=== PATIENT | female | born 1995 | race Two or more races ===

== ENCOUNTER 2023-02-26 12:59 | Inpatient (IN) | payer BC, OTHER ==
[~2023-02-26] VITALS: Ht 157.5 cm; Wt 58.8 kg
[2023-02-26] MEDS ORDERED: PIPERACILLIN-TAZOB 3.375GM 100 ML IV ONE (13:30)
[2023-02-26] MEDS ORDERED: SODIUM CHLORIDE 0.9% 1,000 ML IV ONE ×2 (13:30)
[2023-02-26 14:00] LABS: Basophils # (auto) 0 10 ^3/uL (0-0.2); Basophils % (auto) 0.3 % (0.0-2.0); Eosinophils # (auto) 0 10 ^3/uL (0-0.8); Eosinophils % (auto) 0.1 % (0.0-7.0); Hematocrit 36.1 % (36.0-46.0); Hemoglobin 12.4 g/dL (12.2-16.2); Lymphocytes % (auto) 10.7 % (10.0-50.0); Mean Corpuscular Hemoglobin 29.4 pg (28.0-32.0); Mean Corpuscular Hgb Conc. 34.3 g/dL (32.0-36.0); Mean Corpuscular Volume 85.7 fL (80.0-100.0); Monocytes # (auto) 1.7 10 ^3/uL (0-1.3); Monocytes % (auto) 8.7 % (0.0-12.0); Neutrophils # (auto) 15.3 10 ^3/uL (1.6-8.6); Neutrophils % (auto) 80.2 % (37.0-80.0); Red Blood Cells 4.21 10^6/uL (4.0-5.20); Red Cell Distribution Width 13.2 % (11.8-14.3); White Blood Cell 19.1 10^3/uL (4.4-10.8)
[2023-02-26] MEDS ORDERED: LORazepam 2MG/ML-1ML VIAL IV ONE (14:00)
[2023-02-26 14:15] LABS: Albumin 3.2 g/dL (3.4-5.0); Calcium 7.6 mg/dL (8.5-10.1); Potassium 3.4 mmol/L (3.5-5.1)
[2023-02-26 14:18] LABS: Blood Alcohol < 3.0 mg/dL (0-5); Magnesium 2.6 mg/dL (1.6-2.6)
[2023-02-26 14:20] LABS: BUN/Creatinine Ratio 20.7 (10.0-20.0); Bilirubin, Total 1.2 mg/dL (0.2-1.0); Total Protein 6.7 g/dL (6.4-8.2)
[2023-02-26 14:32] LABS: Creatine Kinase IFCC 2212 U/L (26-192)
[2023-02-26] MEDS ORDERED: ACETAMINOPHEN 650 MG RECT SUPP PR ONE (17:30)
[2023-02-26] MEDS ORDERED: ACETAMINOPHEN 650 MG RECT SUPP PR PRN (17:30)
[2023-02-26] MEDS ORDERED: NITROGLYCERIN 0.4 MG SL TAB SL PRN (17:30)
[2023-02-26] MEDS: SODIUM CHLORIDE 0.9% 1,000 ML IV SCH (20:16)
[2023-02-26 20:20] LABS: Urine Bacteria FEW /hpf (None Seen); Urine Blood 2+ /uL (Negative); Urine Mucus FEW (None Seen); Urine Specific Gravity 1.026 (1.001-1.035); Urine WBC 3 /hpf (0 - 5)
[2023-02-26 20:36] LABS: Amphetamine Screen, Urine POSITIVE (NEGATIVE); Barbiturate Scree,Urine POSITIVE (NEGATIVE); Benzodiazephine Screen, Urine POSITIVE (NEGATIVE); Cocaine Screen, Urine POSITIVE (NEGATIVE); Opiate Scree,Urine NEGATIVE (NEGATIVE)
[2023-02-26 20:44] LABS: Cannabinoid Screen, Urine POSITIVE (NEGATIVE); Phencyclidine Screen, Urine NEGATIVE (NEGATIVE)
[2023-02-27] MEDS ORDERED: SODIUM CHLORIDE 0.9% 1,000 ML IV ONE (00:30)
[2023-02-27] MEDS: SODIUM CHLORIDE 0.9% 1,000 ML IV SCH ×3 (02:31→22:08)
[2023-02-27] MEDS: MORPHINE SULFATE INJ 2 MG/ml SYRG IV PRN (02:57)
[2023-02-27] MEDS: LORazepam 2MG/ML-1ML VIAL IV PRN ×4 (04:18→23:36)
[2023-02-27] MEDS ORDERED: IOHEXOL 350 MG/ML 100ML IJ ONE (04:46)
[2023-02-27] MEDS: GABAPENTIN 300 MG CAP PO SCH ×3 (05:08→21:56)
[2023-02-27 06:42] LABS: Albumin 2.2 g/dL (3.4-5.0); Calcium 6.7 mg/dL (8.5-10.1); Potassium 3.2 mmol/L (3.5-5.1)
[2023-02-27 07:01] LABS: BUN/Creatinine Ratio 19.1 (10.0-20.0); Bilirubin, Total 0.6 mg/dL (0.2-1.0); Total Protein 5.2 g/dL (6.4-8.2)
[2023-02-27 07:16] LABS: Basophils # (auto) 0 10 ^3/uL (0-0.2); Basophils % (auto) 0.1 % (0.0-2.0); Eosinophils # (auto) 0 10 ^3/uL (0-0.8); Eosinophils % (auto) 0.1 % (0.0-7.0); Hematocrit 24.3 % (36.0-46.0); Hemoglobin 8.7 g/dL (12.2-16.2); Lymphocytes # (auto) 1.8 10 ^3/uL (0.4-5.4); Lymphocytes % (auto) 18.9 % (10.0-50.0); Mean Corpuscular Hemoglobin 30.2 pg (28.0-32.0); Mean Corpuscular Hgb Conc. 35.6 g/dL (32.0-36.0); Mean Corpuscular Volume 84.7 fL (80.0-100.0); Monocytes # (auto) 0.7 10 ^3/uL (0-1.3); Monocytes % (auto) 7.8 % (0.0-12.0); Neutrophils # (auto) 6.9 10 ^3/uL (1.6-8.6); Neutrophils % (auto) 73.1 % (37.0-80.0); Red Blood Cells 2.87 10^6/uL (4.0-5.20); Red Cell Distribution Width 13.7 % (11.8-14.3); White Blood Cell 9.5 10^3/uL (4.4-10.8)
[2023-02-27] MEDS: cefTRIAXone 1GM/50ML D5W 50 ML IV SCH (09:19)
[2023-02-27] MEDS ORDERED: LORazepam 2MG/ML-1ML VIAL IV PRN (10:15)
[2023-02-27] MEDS: PANTOPRAZOLE 40 MG/10 ML VIAL INJ IV SCH (10:33)
[2023-02-27] MEDS: AZITHROMYCIN 500MG/ 250ML 250 ML IV SCH (11:08)
[2023-02-27] MEDS ORDERED: POTASSIUM EFFERVESENT TAB 25 MEQ PO ONE (12:00)
[2023-02-27] MEDS: metroNIDAZOLE 500MG/100ML 100 ML IV SCH ×2 (17:32→21:56)
[2023-02-27] MEDS: FOLIC ACID 1 MG, MULTIPLE VITAMIN 10 ML, MAGNESIUM SULF SDV 50% 8 MEQ, THIAMINE INJ 100... INJ SCH ×5 (19:31)
[2023-02-27] MEDS: QUEtiapine FUMARATE 100 MG TAB PO SCH (21:55)
[2023-02-27 22:00] VITALS: BP 95/58
[2023-02-27] MEDS: ONDANSETRON HCL 4 MG/2 ML VIAL IV PRN (23:36)
[2023-02-28] MEDS: SODIUM CHLORIDE 0.9% 1,000 ML IV SCH (02:50)
[2023-02-28] MEDS: metroNIDAZOLE 500MG/100ML 100 ML IV SCH ×3 (05:44→22:12)
[2023-02-28] MEDS: GABAPENTIN 300 MG CAP PO SCH ×3 (05:44→22:13)
[2023-02-28] MEDS: LORazepam 2MG/ML-1ML VIAL IV PRN ×2 (05:54→22:14)
[2023-02-28 06:32] LABS: Basophils # (auto) 0 10 ^3/uL (0-0.2); Basophils % (auto) 0.2 % (0.0-2.0); Eosinophils # (auto) 0 10 ^3/uL (0-0.8); Eosinophils % (auto) 0.4 % (0.0-7.0); Hematocrit 28.6 % (36.0-46.0); Hemoglobin 10.3 g/dL (12.2-16.2); Lymphocytes # (auto) 2.3 10 ^3/uL (0.4-5.4); Lymphocytes % (auto) 26.9 % (10.0-50.0); Mean Corpuscular Hemoglobin 32.2 pg (28.0-32.0); Mean Corpuscular Hgb Conc. 35.9 g/dL (32.0-36.0); Mean Corpuscular Volume 89.8 fL (80.0-100.0); Monocytes # (auto) 0.6 10 ^3/uL (0-1.3); Monocytes % (auto) 6.8 % (0.0-12.0); Neutrophils # (auto) 5.6 10 ^3/uL (1.6-8.6); Neutrophils % (auto) 65.7 % (37.0-80.0); Red Blood Cells 3.19 10^6/uL (4.0-5.20); Red Cell Distribution Width 13.7 % (11.8-14.3); White Blood Cell 8.6 10^3/uL (4.4-10.8)
[2023-02-28 06:46] LABS: BUN/Creatinine Ratio 3.3 (10.0-20.0); Calcium 7.8 mg/dL (8.5-10.1); Potassium 3.2 mmol/L (3.5-5.1)
[2023-02-28 08:00] VITALS: BP 97/65
[2023-02-28 09:02] VITALS: BP 97/65
[2023-02-28] MEDS: cefTRIAXone 1GM/50ML D5W 50 ML IV SCH (09:48)
[2023-02-28] MEDS: PANTOPRAZOLE 40 MG/10 ML VIAL INJ IV SCH (09:52)
[2023-02-28] MEDS: AZITHROMYCIN 500MG/ 250ML 250 ML IV SCH (10:37)
[2023-02-28] MEDS ORDERED: MORPHINE SULFATE INJ 2 MG/ml SYRG IV PRN (10:45)
[2023-02-28] MEDS ORDERED: LORazepam 2MG/ML-1ML VIAL IV PRN (11:00)
[2023-02-28] MEDS: D5W/SOD CHL 0.45%/KCL 40MEQ 1,000 ML IV SCH ×2 (11:59→22:32)
[2023-02-28] MEDS: chlordiazePOXIDE HCL 25 MG CAP PO SCH ×3 (12:11→23:32)
[2023-02-28 13:00] VITALS: BP 96/68
[2023-02-28] MEDS: FOLIC ACID 1 MG, MULTIPLE VITAMIN 10 ML, MAGNESIUM SULF SDV 50% 8 MEQ, THIAMINE INJ 100... INJ SCH ×5 (13:47)
[2023-02-28] MEDS: ONDANSETRON HCL 4 MG/2 ML VIAL IV PRN (17:02)
[2023-02-28 22:00] VITALS: BP 104/60
[2023-02-28] MEDS: QUEtiapine FUMARATE 100 MG TAB PO SCH (22:12)
[2023-02-28] MEDS: MORPHINE SULFATE INJ 2 MG/ml SYRG IV PRN (22:28)
[2023-03-01 05:00] VITALS: BP 110/70
[2023-03-01 05:44] LABS: Calcium 8.1 mg/dL (8.5-10.1); Potassium 4.3 mmol/L (3.5-5.1)
[2023-03-01 05:48] LABS: Albumin 2.5 g/dL (3.4-5.0); BUN/Creatinine Ratio 8.7 (10.0-20.0)
[2023-03-01 05:51] LABS: Bilirubin, Total 0.4 mg/dL (0.2-1.0); Total Protein 6.5 g/dL (6.4-8.2)
[2023-03-01] MEDS: GABAPENTIN 300 MG CAP PO SCH ×3 (06:16→21:14)
[2023-03-01] MEDS: chlordiazePOXIDE HCL 25 MG CAP PO SCH (06:16)
[2023-03-01] MEDS: metroNIDAZOLE 500MG/100ML 100 ML IV SCH ×3 (06:16→21:15)
[2023-03-01 06:24] LABS: Basophils # (auto) 0 10 ^3/uL (0-0.2); Basophils % (auto) 0.2 % (0.0-2.0); Eosinophils # (auto) 0.1 10 ^3/uL (0-0.8); Hematocrit 28.3 % (36.0-46.0); Lymphocytes % (auto) 33.2 % (10.0-50.0); Mean Corpuscular Hemoglobin 32.3 pg (28.0-32.0); Mean Corpuscular Hgb Conc. 35.3 g/dL (32.0-36.0); Mean Corpuscular Volume 91.6 fL (80.0-100.0); Monocytes # (auto) 0.5 10 ^3/uL (0-1.3); Monocytes % (auto) 7.8 % (0.0-12.0); Neutrophils # (auto) 3.3 10 ^3/uL (1.6-8.6); Neutrophils % (auto) 56.8 % (37.0-80.0); Nucleated Red Blood Cells % 0.1 %; Red Blood Cells 3.08 10^6/uL (4.0-5.20); Red Cell Distribution Width 13.8 % (11.8-14.3); White Blood Cell 5.9 10^3/uL (4.4-10.8)
[2023-03-01] MEDS: D5W/SOD CHL 0.45%/KCL 40MEQ 1,000 ML IV SCH (06:29)
[2023-03-01 08:00] VITALS: BP 94/63
[2023-03-01 08:50] VITALS: BP 94/63
[2023-03-01] MEDS: cefTRIAXone 1GM/50ML D5W 50 ML IV SCH (09:13)
[2023-03-01] MEDS: PANTOPRAZOLE 40 MG/10 ML VIAL INJ IV SCH (09:14)
[2023-03-01] MEDS: AZITHROMYCIN 500MG/ 250ML 250 ML IV SCH (11:03)
[2023-03-01 12:00] VITALS: BP 103/57
[2023-03-01] MEDS: HYDROcodone-ACET 5/325MG TAB PO PRN ×2 (12:32→21:15)
[2023-03-01] MEDS: ACETAMINOPHEN 500 MG TAB PO PRN (13:59)
[2023-03-01 17:00] VITALS: BP_SYST 107; BP_SYST 85; BP_DIAS 56; BP_DIAS 71
[2023-03-01] MEDS: chlordiazePOXIDE HCL 5 MG CAP PO SCH (17:12)
[2023-03-01] MEDS: QUEtiapine FUMARATE 100 MG TAB PO SCH (21:14)
[2023-03-01] MEDS: ONDANSETRON HCL 4 MG/2 ML VIAL IV PRN (21:23)
[2023-03-01 22:00] VITALS: BP 108/61
[2023-03-02] VITALS (7 sets, daily range): BP systolic 85–122; BP diastolic 50–72
[2023-03-02] MEDS: chlordiazePOXIDE HCL 5 MG CAP PO SCH ×2 (00:38→05:55)
[2023-03-02] MEDS: GABAPENTIN 300 MG CAP PO SCH ×3 (05:55→20:58)
[2023-03-02] MEDS: metroNIDAZOLE 500MG/100ML 100 ML IV SCH ×3 (05:56→20:58)
[2023-03-02] MEDS: cefTRIAXone 1GM/50ML D5W 50 ML IV SCH (09:15)
[2023-03-02] MEDS: PANTOPRAZOLE 40 MG/10 ML VIAL INJ IV SCH (09:17)
[2023-03-02] MEDS: HYDROcodone-ACET 5/325MG TAB PO PRN ×4 (09:18→22:18)
[2023-03-02] MEDS: AZITHROMYCIN 500MG/ 250ML 250 ML IV SCH (10:33)
[2023-03-02] MEDS: ACETAMINOPHEN 500 MG TAB PO PRN (10:38)
[2023-03-02] MEDS ORDERED: POLYETHYLENE GLYCOL 17 GM PWDR PO ONE (12:30)
[2023-03-02] MEDS: LORazepam 2MG/ML-1ML VIAL IV PRN (16:11)
[2023-03-02] MEDS: LACTULOSE 20Gm/30ML SOLN PO PRN ×2 (16:28→18:42)
[2023-03-02] MEDS: ONDANSETRON HCL 4 MG/2 ML VIAL IV PRN (17:50)
[2023-03-02] MEDS: MORPHINE SULFATE INJ 2 MG/ml SYRG IV PRN (17:55)
[2023-03-03 05:00] VITALS: BP 92/48
[2023-03-03] MEDS: GABAPENTIN 300 MG CAP PO SCH ×3 (05:18→21:39)
[2023-03-03] MEDS: metroNIDAZOLE 500MG/100ML 100 ML IV SCH ×3 (05:21→21:41)
[2023-03-03 08:00] VITALS: BP 94/66
[2023-03-03] MEDS: LORazepam 2MG/ML-1ML VIAL IV PRN ×4 (08:50→21:41)
[2023-03-03] MEDS: PANTOPRAZOLE 40 MG/10 ML VIAL INJ IV SCH (08:50)
[2023-03-03] MEDS: cefTRIAXone 1GM/50ML D5W 50 ML IV SCH (08:53)
[2023-03-03] MEDS: FOLIC ACID 1 MG TAB PO SCH (08:56)
[2023-03-03 09:00] VITALS: BP 104/65
[2023-03-03] MEDS: THIAMINE HCL 100 MG TAB PO SCH (09:47)
[2023-03-03] MEDS: HYDROcodone-ACET 5/325MG TAB PO PRN ×3 (09:48→21:40)
[2023-03-03] MEDS: AZITHROMYCIN 500MG/ 250ML 250 ML IV SCH (09:49)
[2023-03-03 13:00] VITALS: BP 94/66
[2023-03-03] MEDS: ONDANSETRON HCL 4 MG/2 ML VIAL IV PRN (14:04)
[2023-03-03 17:00] VITALS: BP 108/76
[2023-03-03] MEDS: MORPHINE SULFATE INJ 2 MG/ml SYRG IV PRN (19:27)
[2023-03-03 22:00] VITALS: BP 122/84
[2023-03-03] MEDS ORDERED: TEMAZEPAM 15 MG CAP PO PRN (23:00)
[2023-03-04] MEDS: LORazepam 2MG/ML-1ML VIAL IV PRN ×6 (03:04→19:55)
[2023-03-04] MEDS: HYDROcodone-ACET 5/325MG TAB PO PRN ×2 (05:29→17:39)
[2023-03-04] MEDS: GABAPENTIN 300 MG CAP PO SCH ×3 (05:29→21:39)
[2023-03-04] MEDS: metroNIDAZOLE 500MG/100ML 100 ML IV SCH ×3 (05:30→21:40)
[2023-03-04] MEDS: THIAMINE HCL 100 MG TAB PO SCH (10:00)
[2023-03-04] MEDS: FOLIC ACID 1 MG TAB PO SCH (10:06)
[2023-03-04] MEDS: PANTOPRAZOLE 40 MG/10 ML VIAL INJ IV SCH (10:06)
[2023-03-04] MEDS: cefTRIAXone 1GM/50ML D5W 50 ML IV SCH (10:06)
[2023-03-04 10:21] VITALS: BP 130/100
[2023-03-04] MEDS: MORPHINE SULFATE INJ 2 MG/ml SYRG IV PRN ×2 (11:53→21:43)
[2023-03-04] MEDS: NICOTINE 21MG/24 HR TOPICAL PATCH TD SCH (11:54)
[2023-03-04] MEDS: LACTULOSE 20Gm/30ML SOLN PO PRN (12:10)
[2023-03-04] MEDS ORDERED: DIA5T PO (13:24)
[2023-03-04] MEDS: ONDANSETRON HCL 4 MG/2 ML VIAL IV PRN (13:34)
[2023-03-04 15:11] VITALS: BP 126/80
[2023-03-04] MEDS: METOCLOPRAMIDE HCL 5MG/ml INJ 2ml VIAL IV SCH ×2 (16:25→21:39)
[2023-03-04] MEDS ORDERED: LORazepam 2MG/ML-1ML VIAL IV ONE (17:00)
[2023-03-04 22:00] VITALS: BP 122/90
[2023-03-04] MEDS ORDERED: QUEtiapine FUMARATE 100 MG TAB PO SCH (22:00)
[2023-03-05] MEDS: LORazepam 2MG/ML-1ML VIAL IV PRN ×3 (04:09→11:22)
[2023-03-05 05:00] VITALS: BP 93/52
[2023-03-05] MEDS: GABAPENTIN 300 MG CAP PO SCH (05:37)
[2023-03-05] MEDS: metroNIDAZOLE 500MG/100ML 100 ML IV SCH (05:38)
[2023-03-05] MEDS: METOCLOPRAMIDE HCL 5MG/ml INJ 2ml VIAL IV SCH (05:38)
[2023-03-05] MEDS: HYDROcodone-ACET 5/325MG TAB PO PRN ×2 (06:13→12:18)
[2023-03-05] MEDS ORDERED: ZOFR4T PO (08:14)
[2023-03-05] MEDS: FOLIC ACID 1 MG TAB PO SCH (08:15)
[2023-03-05] MEDS: PANTOPRAZOLE 40 MG/10 ML VIAL INJ IV SCH (08:15)
[2023-03-05] MEDS: THIAMINE HCL 100 MG TAB PO SCH (08:15)
[2023-03-05] MEDS: ONDANSETRON HCL 4 MG/2 ML VIAL IV PRN (08:15)
[2023-03-05] MEDS: NICOTINE 21MG/24 HR TOPICAL PATCH TD SCH (08:17)
[2023-03-05] MEDS: cefTRIAXone 1GM/50ML D5W 50 ML IV SCH (08:17)
[2023-03-05 09:00] VITALS: BP 122/7
== END 2023-03-05 12:50 | DRG 871 ==
LOC: EDBD 12:59 → ER 12:59 → TELE 17:27 → TELE-EAST 02-27 18:20 → EAST 03-01 04:06
PROVIDERS: ADMIT Nurse Practitioner Family; ATTEND Nurse Practitioner Acute Care
DX: A41.9 Sepsis, unspecified organism (principal); G92.8 Other toxic encephalopathy; J18.9 Pneumonia, unspecified organism; Z20.822 Contact with and (suspected) exposure to COVID-19; J69.0 Pneumonitis due to inhalation of food and vomit; J96.01 Acute respiratory failure with hypoxia; E44.1 Mild protein-calorie malnutrition; F10.139 Alcohol abuse with withdrawal, unspecified; M62.82 Rhabdomyolysis; G40.409 Other generalized epilepsy and epileptic syndromes, not intractable, without status epilepticus; Z82.0 Family history of epilepsy and other diseases of the nervous system; Z82.49 Family history of ischemic heart disease and other diseases of the circulatory system; Z91.199 Patient's noncompliance with other medical treatment and regimen due to unspecified reason
CPT/HCPCS: 36415; 70450; 70551; 71045; 71275; 72125; 80048; 80053; 80184; 80307; 80320; 80329; 81001; 81025; 82140; 82306; 82542; 82550; 83605; 83735; 83880; 84443; 84702; 85025; 87040; 87086; 87426; 93005; 96361; 96365; 99291; C9113; G0378; J0696; J2405; J2543; J3490; J7060